=== PATIENT | female | born 1980 | race American Indian/Alaskan Native ===

== ENCOUNTER 2017-09-18 07:50 | Outpatient (CLI) | payer MEDICAID ==
--- NOTE | 2017-09-19 08:23 | Magnetic Resonance Report ---
MR LOWER EXTREMITY JOINT LEFT WITHOUT CONTRAST HISTORY: Pain in left knee. TECHNIQUE: Multisequence, multiplanar MRI without contrast was performed through the left knee. COMPARISON: None. FINDINGS: The bone marrow signal is within normal limits. No evidence for bone lesion, fracture or osteochondral defect. There is a full-thickness linear cleft containing fluid in the medial facet of the retropatellar cartilage which is best demonstrated on axial proton density fat sat image 24. The remainder of the intra-articular cartilage is unremarkable. The medial and lateral menisci are intact. No significant degeneration or tear is identified. A ganglion cyst within the proximal ACL measures 2.1 x 0.9 x 0.8 cm. The ACL appears intact otherwise. The PCL, MCL, LCL complex and extensor complex are intact. Trace joint effusion is identified. No popliteal cyst. IMPRESSION: Ganglion cyst of the ACL as described above. Retropatellar cartilage fissure, medial facet. Trace joint effusion.
== END 2017-09-18 07:51 | disposition home or self-care (01) ==
LOC: MRI 07:50
PROVIDERS: ATTEND Orthopaedic Surgery
DX: M67.462 Ganglion, left knee (principal); Z88.6 Allergy status to analgesic agent
CPT/HCPCS: 73721